=== PATIENT | female | born 1995 | race Caucasian/White ===

== ENCOUNTER 2019-03-22 20:23 | Emergency (ER) | payer BC, OTHER ==
[~2019-03-22] VITALS: Ht 160 cm; Wt 143.6 kg
[~2019-03-22 20:23] MED LIST: ALBU90AE IH; BUTA1CAP45 PO; CLAR-19 PO; DOXY100T2 PO; PROM5SYR PO
--- NOTE | 2019-03-22 21:31 | ED Lower Extremity ---
General Chief Complaint: Lower Extremity Stated Complaint: POSS PULLED MUSCLE Nursing Triage Note: Patient states that she thinks she pulled her groin yesterday. Patient is complaining of pain in her right groin and rates it at a 10. Nursing Sepsis Screen: No Definite Risk Source: patient History of Present Illness Date Seen by Provider: Mar 22, 2019 Time Seen by Provider: 21:31 Initial Comments 24-year-old female presenting with family after having increasing right groin pain. This started with mild pain on Thursday that has gotten severe in the last 3 or 4 hours. She is not aware of any specific injury to start the pain. She has had severe pain to the groin worse with palpation and movement. She tried naproxen this evening with no significant improvement. She denies any pain with urination or bowel movement. She has not had nausea or vomiting. She denies any fever or chills. Allergies and Home Medications Allergies Coded Allergies: No Known Drug Allergies (Unverified , 11/14/15) Home Medications Butalb/Acetaminophen/Caffeine 1 Each Capsule, 1-2 EACH PO Q6H PRN for HEADACHE Prescribed by: JESSICA BUTT on 11/14/15 1218 Clarithromycin 500 Mg Tablet, 500 MG PO BID, (Reported) Doxycycline Hyclate 100 Mg Tablet, 100 MG PO BID, (Reported) Hydrocodone Bit/Acetaminophen 1 Tab Tab, 1 EACH PO Q6H PRN for PAIN-SEVERE (8- 10) Prescribed by: ROBERT FLORES on 03/23/19 0109 Naproxen 500 Mg Tablet, 500 MG PO BID PRN for pain/inflammation Prescribed by: ROBERT FLORES on 03/23/19 0109 Promethazine HCl/Codeine 5 Ml Syrup, 5 ML PO Q4H, (Reported) Patient Home Medication List Home Medication List Reviewed: Yes Review of Systems Constitutional: No chills, No fever EENTM: No nose congestion Respiratory: No cough Cardiovascular: No chest pain Gastrointestinal: abdominal pain (right groin pain), diarrhea (chronic since having her gallbladder out); No nausea, No vomiting Genitourinary: see HPI Musculoskeletal: see HPI, other (right groin pain, concern she may have pulled a muscle) Skin: no symptoms reported Psychiatric/Neurological: Denies Headache Past Agoxuoz-Tfubob-Xcreep Hx Past Med/Social Hx: Reviewed Nursing Past Med/Soc Hx Patient Social History Alcohol Use: Denies Use Recreational Drug Use: No Smoking Status: Never a Smoker Recent Foreign Travel: No Contact w/Someone Who Travel: No Recent Infectious Disease Expo: No Recent Hopitalizations: No Physical Abuse: No Sexual Abuse: No Mistreated: No Fear: No Immunizations Up To Date Tetanus Booster (TDap): Less than 5yrs Seasonal Allergies Seasonal Allergies: Yes Past Medical History Surgeries: Yes (WISDOM TEETH OUT) Gallbladder Respiratory: No Cardiac: No Neurological: Yes Headaches /Migraines Reproductive Disorders: No Genitourinary: No Gastrointestinal: No Musculoskeletal: No Endocrine: Yes (OBESITY) HEENT: No Cancer: No Psychosocial: No Integumentary: No Blood Disorders: No Adverse Reaction/Blood Tranf: No Physical Exam Vital Signs Vital Signs - First Documented 03/22/19 20:28 Temp 36.8 Pulse 117 Resp 20 B/P (MAP) 128/67 (87) Pulse Ox 99 O2 Delivery Room Air Capillary Refill : Less Than 3 Seconds Height, Weight, BMI Height: 5'3" Weight: 250lbs. oz. [id number]; 56.00 BMI Method:Stated General Appearance: moderate distress (complains of pain in Right groin and appears to be uncomfortable), obese HEENT: PERRL/EOMI, pharynx normal Neck: non-tender, supple Cardiovascular: normal peripheral pulses, regular rate, rhythm Respiratory: chest non-tender, lungs clear, normal breath sounds Gastrointestinal: normal bowel sounds, soft, no pulsatile mass; No distended, No guarding, No rebound; tenderness (right groin/femoral area) Neurologic/Tendon: normal sensation, normal motor functions Neurologic/Psychiatric: alert, oriented x 3, other (anxious) Skin: normal color, warm/dry Progress/Results/Core Measures Results/Orders Lab Results Laboratory Tests Test 03/22/19 22:00 03/22/19 22:07 Range/Units White Blood Count 15.0 H 4.3-11.0 10^3/uL Red Blood Count 4.99 4.35-5.85 10^6/uL Hemoglobin 12.6 11.5-16.0 G/DL Hematocrit 41 35-52 % Mean Corpuscular Volume 81 80-99 FL Mean Corpuscular Hemoglobin 25 25-34 PG Mean Corpuscular Hemoglobin Concent 31 L 32-36 G/DL Red Cell Distribution Width 14.6 H 10.0-14.5 % Platelet Count 454 H 130-400 10^3/uL Mean Platelet Volume 9.3 7.4-10.4 FL Neutrophils (%) (Auto) 57 42-75 % Lymphocytes (%) (Auto) 35 12-44 % Monocytes (%) (Auto) 7 0-12 % Eosinophils (%) (Auto) 1 0-10 % Basophils (%) (Auto) 0 0-10 % Neutrophils # (Auto) 8.5 H 1.8-7.8 X 10^3 Lymphocytes # (Auto) 5.2 H 1.0-4.0 X 10^3 Monocytes # (Auto) 1.1 H 0.0-1.0 X 10^3 Eosinophils # (Auto) 0.1 0.0-0.3 10^3/uL Basophils # (Auto) 0.1 0.0-0.1 10^3/uL Neutrophils % (Manual) 50 % Lymphocytes % (Manual) 6 % Monocytes % (Manual) 0 % Eosinophils % (Manual) 0 % Band Neutrophils 44 % Blood Morphology Comment NORMAL Sodium Level 141 135-145 MMOL/L Potassium Level 3.8 3.6-5.0 MMOL/L Chloride Level 102 98-107 MMOL/L Carbon Dioxide Level 24 21-32 MMOL/L Anion Gap 15 H 5-14 MMOL/L Blood Urea Nitrogen 14 7-18 MG/DL Creatinine 0.83 0.60-1.30 MG/DL Estimat Glomerular Filtration Rate > 60 BUN/Creatinine Ratio 17 Glucose Level 99 70-105 MG/DL Calcium Level 9.4 8.5-10.1 MG/DL Corrected Calcium 9.3 8.5-10.1 MG/DL Total Bilirubin 0.2 0.1-1.0 MG/DL Aspartate Amino Transf (AST/SGOT) 13 5-34 U/L Alanine Aminotransferase (ALT/SGPT) 14 0-55 U/L Alkaline Phosphatase 108 40-136 U/L Total Protein 7.4 6.4-8.2 GM/DL Albumin 4.1 3.2-4.5 GM/DL Lipase 14 8-78 U/L Serum Test, Qualitative NEGATIVE NEGATIVE Urine Color YELLOW Urine Clarity CLEAR Urine pH 6.0 5-9 Urine Specific Cameron >1.030 1.016-1.022 Urine Protein NEGATIVE NEGATIVE Urine Glucose (UA) NEGATIVE NEGATIVE Urine Ketones NEGATIVE NEGATIVE Urine Nitrite NEGATIVE NEGATIVE Urine Bilirubin NEGATIVE NEGATIVE Urine Urobilinogen 0.2 < = 1.0 MG/DL Urine Leukocyte Esterase NEGATIVE NEGATIVE Urine RBC (Auto) 1+ H NEGATIVE Urine RBC 2-5 H /HPF Urine WBC NONE /HPF Urine Squamous Epithelial Cells 5-10 /HPF Urine Crystals NONE /LPF Urine Bacteria MODERATE H /HPF Urine Casts NONE /LPF Urine Mucus SMALL H /LPF Urine Culture Indicated NO My Orders Orders - ROBERT FLORES MD Comprehensive Metabolic Panel (03/22/19 21:39) Lipase (03/22/19 21:39) Ua Culture If Indicated (03/22/19 21:39) Hcg,Qualitative Serum (03/22/19 21:39) Ed Iv/Invasive Line Start (03/22/19 21:39) Cbc With Automated Diff (03/22/19 21:39) Ct Abdomen/Pelvis W (03/22/19 21:39) Ns Iv 1000 Ml (Sodium Chloride 0.9%) (03/22/19 21:39) Ketorolac Injection (Toradol Injection) (03/22/19 21:39) Morphine Injection (Morphine Injection (03/22/19 21:39) Iohexol Injection (Omnipaque 350 Mg/Ml 1 (03/22/19 22:00) Received Contrast (Hold Metformin- Contr (03/22/19 22:00) Sodium Chloride Flush (Catheter Flush Sy (03/22/19 22:00) Ns (Ivpb) (Sodium Chloride 0.9% Ivpb Bag (03/22/19 22:00) Manual Differential (03/22/19 22:00) Rx-Hydrocodone/Apap 5-325 Mg (Rx-Vicodin (03/23/19 01:00) Medications Given in ED Current Medications Medications Dose Ordered Sig/Zakiya Route Start Time Stop Time Status Last Admin Dose Admin Acetaminophen/ Hydrocodone Bitart 1 ea Q6H PRN PO 03/23/19 01:00 03/23/19 01:13 DC 03/23/19 01:11 1 EA Iohexol 100 ml ONCE ONCE IV 03/22/19 22:00 03/22/19 22:01 DC 03/22/19 22:13 100 ML Sodium Chloride 10 ml NEEDED PRN IV 03/22/19 22:00 03/23/19 01:13 DC 03/22/19 22:13 10 ML Sodium Chloride 100 ml ONCE ONCE IV 03/22/19 22:00 03/22/19 22:01 DC 03/22/19 22:13 100 ML Vital Signs/I&O 03/22/19 03/23/19 20:28 01:12 Temp 36.8 36.8 Pulse 117 117 Resp 20 20 B/P (MAP) 128/67 (87) 128/67 (87) Pulse Ox 99 99 O2 Delivery Room Air 03/23/19 00:00 Intake Total 1000 ml Balance 1000 ml Blood Pressure Mean: 87 Progress Progress Note #1: Progress Note with her severe pain and no definite injury will obtain labs, give IV morphine for pain, check CT scan to evaluate for possible hernia or ovarian cyst causing pain. Progress Note #2: Progress Note Labs show an elevated white blood cell count. She has stable chemistry panel. Her CT scan did come back showing a small 2 mm fat-containing femoral hernia on the right side. This certainly could be contributing to her pain. Her pain was much better after treatment in the ED. Counseled on return and follow-up precautions. We will treat her for pain and have her try warm packs to the right groin. If not improving or if worsening then surgery consult would be indicated. Otherwise advised patient that this was small enough it should resolve on its own Diagnostic Imaging Diagonstic Imaging: CT Plain Films/CT/US/NM/MRI: abdomen, pelvis Comments Impression 1. Questionable very small right femoral region fat-containing hernia of up to 2 mm. Uncertain significance related to the patient's symptoms. 2. Fatty liver. Postcholecystectomy. Read by radiologist Dr. Lon Magana M.D. at 22:42 PM and faxed at 23:38 PM Reviewed: Reviewed Night [facility] Study Departure Impression Primary Impression: Femoral hernia of right side without obstruction or gangrene Disposition: HOME, SELF-CARE Condition: Stable Departure-Patient Inst. Decision time for Depature: 01:04 Referrals: EUN MAYO DO NO,LOCAL PHYSICIAN (PCP) Primary Care Physician Patient Instructions: Inguinal and Femoral (Groin) Hernias, Groin Hernia (DC) Add. Discharge Instructions: Use the pain medicine for severe pain. May apply a warm pack to your groin to help with pain. Apply heat 20-30 minutes every few hours as needed for pain. You could alternate this with ice to help with inflammation Take the pain medicine for severe pain. You may also continue the Naproxen or NSAID for inflammation and pain. Seek medical care with a surgeon if you have worsening pain, uncontrolled vo miting, or develop a black or bruised area in your groin. All discharge instructions reviewed with patient and/or family. Voiced understanding. Scripts Naproxen (Naprosyn) 500 Mg Tablet 500 MG PO BID PRN for pain/inflammation for 15 Days, #30 TAB 0 Refills Prov: ROBERT FLORES MD 03/23/19 Hydrocodone Bit/Acetaminophen (Hydrocodone/Acetaminophen 5/325mg Tablet) 1 Tab Tab 1 EACH PO Q6H PRN for PAIN-SEVERE (8-10) MDD 10 for 3 Days, #12 TAB 0 Refills Prov: ROBERT FLORES MD 03/23/19 ROBERT FLORES MD Mar 22, 2019 21:31
[2019-03-22] MEDS ORDERED: morphine INJ 10 MG/ML 1ML (SYR OR VIAL) IVP STA (21:39)
[2019-03-22] MEDS ORDERED: NS IV 1000 ML 1,000 ML IV STA (21:39)
[2019-03-22] MEDS ORDERED: KETOROLAC 30 MG/ML VIAL IVP STA (21:39)
[2019-03-22] MEDS ORDERED: CATHETER FLUSH 10 ML SYR IV PRN (22:00)
[2019-03-22] MEDS ORDERED: NS 100 ML (IVPB) BAG IV ONE (22:00)
[2019-03-22] MEDS ORDERED: HOLD METFORMIN - RECEIVED CONTRAST 20 ML VIAL IV SCH (22:00)
[2019-03-22] MEDS ORDERED: IOHEXOL 350 MG/ML 100 ML (OMNIPAQUE 350) VIAL IV ONE (22:00)
[2019-03-22 22:09] LABS: BASOPHILS # (AUTO) 0.1 10^3/uL (0.0-0.1); BASOPHILS % (AUTO) 0 % (0-10); EOSINOPHILS # (AUTO) 0.1 10^3/uL (0.0-0.3); EOSINOPHILS % (AUTO) 1 % (0-10); HEMATOCRIT 41 % (35-52); HEMOGLOBIN 12.6 G/DL (11.5-16.0); LYMPHOCYTES # (AUTO) 5.2 X 10^3 (1.0-4.0); LYMPHOCYTES % (AUTO) 35 % (12-44); MEAN CORPUSCULAR HEMOGLOBIN 25 PG (25-34); MEAN CORPUSCULAR HGB CONC 31 G/DL (32-36); MEAN CORPUSCULAR VOLUME 81 FL (80-99); MEAN PLATELET VOLUME 9.3 FL (7.4-10.4); MONOCYTES # (AUTO) 1.1 X 10^3 (0.0-1.0); MONOCYTES % (AUTO) 7 % (0-12); NEUTROPHILS # (AUTO) 8.5 X 10^3 (1.8-7.8); NEUTROPHILS % (AUTO) 57 % (42-75); PLATELET COUNT 454 10^3/uL (130-400); RED CELL DISTRIBUTION WIDTH 14.6 % (10.0-14.5)
[2019-03-22 22:22] LABS: BACTERIA,URINE MODERATE /HPF; BILIRUBIN,URINE NEGATIVE (NEGATIVE); CLARITY,URINE CLEAR; COLOR,URINE YELLOW; GLUCOSE, URINE (UA) NEGATIVE (NEGATIVE); KETONES,URINE NEGATIVE (NEGATIVE); LEUKOCYTE ESTERASE ,URINE NEGATIVE (NEGATIVE); NITRITE,URINE NEGATIVE (NEGATIVE); PROTEIN,URINE NEGATIVE (NEGATIVE)
[2019-03-22 22:30] LABS: ALANINE AMINOTRANSFERASE 14 U/L (0-55); ALBUMIN 4.1 GM/DL (3.2-4.5); ALKALINE PHOSPHATASE 108 U/L (40-136); BILIRUBIN,TOTAL 0.2 MG/DL (0.1-1.0); BUN/CREATININE RATIO 17; CALCIUM 9.4 MG/DL (8.5-10.1); CARBON DIOXIDE 24 MMOL/L (21-32); CHLORIDE 102 MMOL/L (98-107); CREATININE SERUM 0.83 MG/DL (0.60-1.30); GFR ESTIMATED > 60; GLUCOSE 99 MG/DL (70-105); LIPASE 14 U/L (8-78); POTASSIUM 3.8 MMOL/L (3.6-5.0); SODIUM 141 MMOL/L (135-145); TOTAL PROTEIN 7.4 GM/DL (6.4-8.2)
[2019-03-22 22:44] LABS: BAND NEUTROPHILS 44 %; EOSINOPHILS % (MANUAL) 0 %; LYMPHOCYTES % (MANUAL) 6 %; MONOCYTES % (MANUAL) 0 %; NEUTROPHILS % (MANUAL) 50 %; RBC MORPH NORMAL
[2019-03-23] MEDS ORDERED: RX-HYDROCODONE/APAP 5/325 MG #4 TAB PK PO PRN (01:00)
[2019-03-23] MEDS ORDERED: NAPR-1071 PO (01:09)
[2019-03-23] MEDS ORDERED: ACHD5005 PO (01:09)
[2019-03-23 01:12] VITALS: BP 128/67
--- NOTE | 2019-03-23 06:33 | Diagnostic Imaging Report ---
PROCEDURE: CT abdomen and pelvis with contrast. TECHNIQUE: Multiple contiguous axial images were obtained through the abdomen and pelvis after administration of intravenous contrast. Auto Exposure Controls were utilized during the CT exam to meet ALARA standards for radiation dose reduction. INDICATION: Right groin pain. FINDINGS: The lung bases are clear. Fatty changes of the liver. Gallbladder is absent. Bile ducts are not dilated. Pancreas and spleen are normal. The adrenal glands and kidneys are normal. There is normal enhancement of the abdominal organs and vessels following IV contrast. The stomach and small bowel are nondistended. The colon shows normal stool and gas pattern. The appendix is not dilated. There is no free air or free fluid. No intra-abdominal adenopathy. No pelvic masses. The bladder is decompressed. There is a small right inguinal hernia containing fat. No evidence of incarceration. There is no intra-abdominal adenopathy. No bony abnormalities. IMPRESSION: 1. Small fat-containing right inguinal hernia. 2. Hepatic steatosis. Dictated by: Dictated on workstation # [id number]
== END 2019-03-23 01:12 | disposition home or self-care (01) ==
LOC: EDUNIT# 20:23 → ER FS 20:24
DX: K41.90 Unilateral femoral hernia, without obstruction or gangrene, not specified as recurrent (principal); G43.909 Migraine, unspecified, not intractable, without status migrainosus; E66.9 Obesity, unspecified
CPT/HCPCS: 36415; 74177; 80053; 81000; 83690; 84703; 85007; 85027; 96374; 96375